=== PATIENT | male | born 1960 | race Caucasian/White ===

== ENCOUNTER → 2017-10-15 | Outpatient (CLI) | payer OTHER ==
[~2017-10-15] MED LIST: CIPRO500 MG PO; FLOMAX0.4 MG PO; PERCOCET 5/31 TABLET PO; ZOFRAN ODT4 MG PO
== END | disposition home or self-care (01) ==
LOC: CDC 14:35
DX: Z01.810 Encounter for preprocedural cardiovascular examination (principal); M17.32 Unilateral post-traumatic osteoarthritis, left knee; M25.462 Effusion, left knee; M25.562 Pain in left knee
CPT/HCPCS: 93000